=== PATIENT | female | born 1955 | race Caucasian/White ===

== ENCOUNTER → 2017-07-07 | Day surgery (SDC) | payer OTHER ==
[~2017-07-07] VITALS: Ht 149.9 cm; Wt 74.8 kg
[~2017-07-07] MED LIST: ADVAIR 100-501 EACH INH; MONTELUKAST SOD10 M1 PO; PROAIR HFA8.5 GM INH; VITAMIN D1000 UNIT PO; ZYRTEC10 M6 PO
--- NOTE | 2017-07-07 12:25 | Operative Report ---
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 Anesthesia was administered and 2 g of Ancef was given. The right breast was prepped and draped in a sterile fashion ChloraPrep. Local anesthesia of 1% lidocaine mixed half percent Marcaine was given and a curvilinear incision was made in the lower outer breast. The wire was brought into the incision and the area of concern was grasped using an Allis clamp. Air concern was dissected and removed and marked for orientation using margin map. Intraoperative x-ray confirmed the presence of the clip in the specimen. Additional margins were taken in the cranial, caudal, medial, lateral, deep and anterior positions. Hemostasis adequate. Tissue borders were marked using mammary clips. Deep tissue was proximal made using interrupted Vicryl sutures and skin was closed using a running Biosyn subcuticular stitch. Her symptoms and sterile dressings were applied and the patient was transferred to recovery room in satisfactory condition having tolerated the procedure well.
--- NOTE | 2017-07-07 22:45 | MAMMOGRAPHY REPORT ---
CLINICAL INFORMATION: Right breast mass at 8:00 with the biopsy results positive for ductal carcinoma in situ grade 1, involving fragments of sclerosed papilloma. COMPARISON: Ultrasound guided right breast biopsy and postbiopsy mammograms of 05/22/2017 TECHNIQUE NEEDLE LOC: Proper informed consent is obtained from the patient after discussion of the procedure, potential risks and complications, and alternatives including declining the procedure today. Patient was given an opportunity for questions. The patient appeared to understand. The patient consented to the procedure and signed the consent form. GUIDANCE: Ultrasound APPROACH: Lateral TARGET: An irregular hypoechoic mass at 8:00 8 cm from nipple measuring 1.4 x 1.2 x 1.2 cm. ANESTHESIA: 3 mL lidocaine 2% LOCALIZATION MARKER: [place] The skin was prepped and local anesthesia administered. The needle was positioned and position assessed with mammography. The wire was hooked into position. The patient tolerated the procedure well and had no immediate complication. Diagram was marked for the surgeon. The target is at 8:00 8 cm from nipple, 6 cm deep to the skin with 9 cm of the wire remaining external to the skin. IMPRESSION: Status post right breast needle localization with wire hooked into position. The target is at 8:00, 6 cm deep to the skin with 9 cm of the wire remaining external to the skin. EXAMINATION: SPECIMEN RADIOGRAPH (RIGHT BREAST) COMPARISON: Imaging from the needle localization procedure performed earlier in the day. FINDINGS: A single specimen radiograph was obtained. This shows the wire is delivered intact. The biopsy clip and targeted somewhat high density mass are identified within the specimen. IMPRESSION: Satisfactory excision of the targeted lesion. The surgeon was notified of the recommendations at the time of the exam.
== END ==
LOC: STS 04:19
DX: D05.11 Intraductal carcinoma in situ of right breast (principal); I10 Essential (primary) hypertension; J45.909 Unspecified asthma, uncomplicated; E66.9 Obesity, unspecified; Z68.33 Body mass index [BMI] 33.0-33.9, adult
CPT/HCPCS: 76942; 77065-RT; J0131; J0690; J2001; J2250; J2405